=== PATIENT | female | born 1995 | race Caucasian/White ===

== ENCOUNTER 2019-02-03 15:01 | Emergency (ER) | payer OTHER, MEDICAID ==
--- NOTE | 2019-02-03 16:10 | EDPHY ---
H & P Stated Complaint: psychosis, hallunications Time Seen by Provider: 02/03/19 15:31 HPI/ROS: CHIEF COMPLAINT: Psychosis and agitation HISTORY OF PRESENT ILLNESS: 23-year-old female with a chromosomal abnormality and developmental delay presents with acute psychosis and agitation. 3 week history of hearing "a rock band in my head". Associated with increased agitation and anxiety. Saw her psychiatrist, who prescribed Atarax. No relief with Atarax. Unable to sleep or do her usual activities. Lives at home with her mother. Denies suicidal or homicidal ideation. 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, asthma, cpap, cardiac abnormalities, migraines, anxiety, psychosis, spinal fusion, dd, low calcium - Social History Smoking Status: Never smoked Alcohol Use: None Drug Use: None - Physical Exam Exam: General Appearance: Alert, pleasant Eyes: Pupils equal and round, no conjunctival pallor or injection ENT, Mouth: Mucous membranes moist Neck: Normal inspection Respiratory: Lungs are clear to auscultation Cardiovascular: Regular rate and rhythm Gastrointestinal: Abdomen is soft and nontender Neurological: A&O, nonfocal exam Skin: Warm and dry Extremities: Normal inspection Psychiatric: Flat affect Constitutional: Initial Vital Signs Temperature (C) 37.1 C 02/03/19 15:06 Heart Rate 104 H 02/03/19 15:06 Respiratory Rate 16 02/03/19 15:06 Blood Pressure 120/87 H 02/03/19 15:06 O2 Sat (%) 99 02/03/19 15:06 O2 Delivery Mode Room Air Allergies/Adverse Reactions: sulfamethoxazole [From Bactrim] Allergy (Verified 02/03/19 15:12) trimethoprim [From Bactrim] Allergy (Verified 02/03/19 15:12) Home Medications: Medication Instructions Recorded Albuterol 02/03/19 Aripiprazole 02/03/19 Clonazepam 02/03/19 Hydroxyzine HCl 02/03/19 MIDAZOLAM HCL 02/03/19 Prozac 10 MG (*) 02/03/19 Rizatriptan Benzoate 02/03/19 Topiramate 02/03/19 busPIRone 02/03/19 Medical Decision Making ED Course/Re-evaluation: This patient presents with acute psychosis and increased agitation. She does not meet criteria for an M1 hold. 1800: Medically cleared for mental health evaluation. This pt was seen briefly by mental health. Pt's mother decided not to stay for eval and will have pt f/u with as outpt. Differential Diagnosis: Differential diagnosis includes though it is not limited to suicidal ideation, overdose, acute psychosis, self-injury, alcohol withdrawal. - Data Points Laboratory Results: Laboratory Results 02/03/19 16:05 02/03/19 16:05 02/03/19 02/03/19 02/03/19 18:02 16:05 16:05 WBC RBC Hgb Hct MCV MCH MCHC RDW Plt Count MPV Neut % (Auto) Lymph % (Auto) [place] % (Auto) Eos % (Auto) Baso % (Auto) Nucleat RBC Rel Count Absolute Neuts (auto) Absolute Lymphs (auto) Absolute Monos (auto) Absolute Eos (auto) Absolute Basos (auto) Absolute Nucleated RBC Immature Gran % Immature Gran # Sodium 140 mEq/L mEq/L (135-145) Potassium 4.1 mEq/L mEq/L (3.5-5.2) Chloride 104 mEq/L mEq/L (97-110) Carbon Dioxide 23 mEq/l mEq/l (22-31) Anion Gap 13 mEq/L mEq/L (6-14) BUN 10 mg/dL mg/dL (7-23) Creatinine 0.7 mg/dL mg/dL (0.6-1.0) Estimated GFR > 60 Glucose 105 mg/dL H mg/dL (70-100) Calcium 9.4 mg/dL mg/dL (8.5-10.4) Beta HCG, Qual NEGATIVE Urine Opiates Screen NEGATIVE (NEGATIVE) Urine Barbiturates NEGATIVE (NEGATIVE) Ur Phencyclidine Scrn NEGATIVE (NEGATIVE) Ur Amphetamine Screen NEGATIVE (NEGATIVE) U Benzodiazepines Scrn NEGATIVE (NEGATIVE) Urine Cocaine Screen NEGATIVE (NEGATIVE) U Marijuana (THC) Screen NEGATIVE (NEGATIVE) Ethyl Alcohol < 10 mg/dL mg/dL (0-10) 02/03/19 16:05 WBC 12.07 10^3/uL H 10^3/uL (3.80-9.50) RBC 4.65 10^6/uL 10^6/uL (4.18-5.33) Hgb 14.3 g/dL g/dL (12.6-16.3) Hct 43.4 % % (38.0-47.0) MCV 93.3 fL fL (81.5-99.8) MCH 30.8 pg pg (27.9-34.1) MCHC 32.9 g/dL g/dL (32.4-36.7) RDW 13.8 % % (11.5-15.2) Plt Count 234 10^3/uL 10^3/uL (150-400) MPV 12.5 fL H fL (8.7-11.7) Neut % (Auto) 76.1 % H % (39.3-74.2) Lymph % (Auto) 15.4 % % (15.0-45.0) [place] % (Auto) 6.7 % % (4.5-13.0) Eos % (Auto) 0.8 % % (0.6-7.6) Baso % (Auto) 0.6 % % (0.3-1.7) Nucleat RBC Rel Count 0.0 % % (0.0-0.2) Absolute Neuts (auto) 9.18 10^3/uL H 10^3/uL (1.70-6.50) Absolute Lymphs (auto) 1.86 10^3/uL 10^3/uL (1.00-3.00) Absolute Monos (auto) 0.81 10^3/uL H 10^3/uL (0.30-0.80) Absolute Eos (auto) 0.10 10^3/uL 10^3/uL (0.03-0.40) Absolute Basos (auto) 0.07 10^3/uL 10^3/uL (0.02-0.10) Absolute Nucleated RBC 0.00 10^3/uL 10^3/uL (0-0.01) Immature Gran % 0.4 % % (0.0-1.1) Immature Gran # 0.05 10^3/uL 10^3/uL (0.00-0.10) Sodium Potassium Chloride Carbon Dioxide Anion Gap BUN Creatinine Estimated GFR Glucose Calcium Beta HCG, Qual Urine Opiates Screen Urine Barbiturates Ur Phencyclidine Scrn Ur Amphetamine Screen U Benzodiazepines Scrn Urine Cocaine Screen U Marijuana (THC) Screen Ethyl Alcohol Departure - Departure Disposition: Home, Routine, Self-Care Clinical Impression: Acute psychosis Condition: Good Instructions: Psychotic Disorder (ED) Referrals: [facility] [Other] - As per Instructions [facility] [Outside] - As per Instructions (Follow-up with mental health as suggested.)
[2019-02-03 16:20] LABS: PLATELET COUNT 234 10^3/uL (150-400)
[2019-02-03 18:40] VITALS: BP 129/86
--- NOTE | 2019-02-03 22:16 | ASMTLCPROG ---
Notes Note: Notes: Pt self presented with her mother with complaints of auditory hallucinations and increased agiatation. Pt was seen after spending multiple hours in the ED. When TLC entered room mother reported she does not want to remain in the ED any longer. Pt has a hx of developmental disability, 22 Q. Pt is under the care of a Psychiatrist at [facility]. Mother said she wants to take pt. home rather then spend any more time in the ED. Mother will consult with pt's community Psychiatrist at [facility] to explore alternative options. Per discussion with ED Physican, Dr. Buenrostro pt was not determined appropriate for a M1 hold based on criteria provided in initial assessment. Mother declined to remain in the ED to complete mental health evaluation. [facility] discussed options and recommendations for pt to seek assistance through Developmental Disabilities Programs such as [facility]. Mother appears to be a good advocate for pt. and appears willing to f/u with pt.'s needs. Date Signed: 02/03/2019 10:15 PM Electronically Signed By:Therese Escamilla
== END 2019-02-03 21:23 | disposition home or self-care (01) ==
DX: F23 Brief psychotic disorder (principal)
CPT/HCPCS: 80305; G0480